=== PATIENT | male | born 1985 | race Asian ===

== ENCOUNTER 2016-04-29 15:20 | Emergency (ER) | payer BC, OTHER ==
[~2016-04-29] VITALS: Ht 182.9 cm; Wt 120.5 kg
[2016-04-29 18:44] VITALS: BP 118/72
== END 2016-04-29 18:55 | disposition home or self-care (01) ==
LOC: EMS 15:22
DX: M25.462 Effusion, left knee (principal); F12.90 Cannabis use, unspecified, uncomplicated
CPT/HCPCS: 99284

== ENCOUNTER 2024-08-19 09:38 | Emergency (ER) | payer OTHER ==
[~2024-08-19] VITALS: Ht 182.9 cm; Wt 113.0 kg
[2024-08-19 10:29] VITALS: TEMP 99
[2024-08-19 12:01] LABS: BASOPHILS % (AUTO) 0.5 % (0.0-2.0); HEMATOCRIT 47.1 % (41-53); HEMOGLOBIN 16.6 g/dL (13.5-17.5); LYMPHOCYTES # (AUTO) 1.8 K/uL (1.0-4.8); LYMPHOCYTES % (AUTO) 14.5 % (22.0-44.0); MEAN CORPUSCULAR HEMOGLOBIN 32.8 pg (26.0-34.0); MEAN CORPUSCULAR HGB CONC 35.3 G/dL (31.0-37.0); MEAN CORPUSCULAR VOLUME 93 fL (80-100); MONOCYTES # (AUTO) 1.5 K/uL (0.1-1.0); MONOCYTES % (AUTO) 12.4 % (2.0-9.0); NEUTROPHILS # (AUTO) 8.8 K/uL (1.8-7.7); NEUTROPHILS % (AUTO) 71.6 % (40.0-70.0); PLATELET COUNT (AUTO) 190 K/uL (150-450); RED BLOOD CELL COUNT(AUTO) 5.06 MIL/uL (4.50-5.90); RED CELL DISTRIBUTION WIDTH 13.4 % (11.5-14.5); WHITE BLOOD COUNT (AUTO) 12.3 K/uL (4.5-11.0)
[2024-08-19 12:08] LABS: ANION GAP 8 mmol/L (8-16); CALCIUM, TOTAL 8.8 mg/dL (8.8-10.5); CARBON DIOXIDE 30 mmol/L (22-29); CHLORIDE 101 mmol/L (98-107); CREATININE 1.03 mg/dL (0.60-1.30); GLOMERULAR FILTR. RATE CALC > 60 mL/min (>60); GLUCOSE,RANDOM 133 mg/dL (70-110); POTASSIUM 3.3 mmol/L (3.5-5.1); SODIUM SERUM 139 mmol/L (136-145); UREA NITROGEN, BLOOD 10 mg/dL (7-18)
[2024-08-19] MEDS: TraMADol HCL 50 MG TABLET PO ONE (12:09)
[2024-08-19] MEDS: MethylPREDNISolone SOD SUCC 125 MG/2 ML VIAL IM ONE (12:10)
[2024-08-19] MEDS ORDERED: TRAM50TA5 PO (12:47)
[2024-08-19] MEDS ORDERED: COLC-3 PO (12:47)
[2024-08-19 13:06] VITALS: BP 131/94; PULSE 75; RESP 17; O2SAT 99
== END 2024-08-19 13:14 | disposition home or self-care (01) ==
LOC: EMS 09:49
DX: M10.062 Idiopathic gout, left knee (principal); F12.90 Cannabis use, unspecified, uncomplicated; Z98.890 Other specified postprocedural states
CPT/HCPCS: 99284; 80048; 85025; 36415; 73562; 96372; J2919